=== PATIENT | male | born 1965 | race Caucasian/White ===

== ENCOUNTER 2019-08-12 00:11 | Observation (INO) | payer SELFPAY ==
[2019-08-12] MEDS ORDERED: Nicotine 14 MG PATCH ONE (00:42)
[2019-08-12 01:21] LABS: Troponin I Less than 0.010 ng/mL (< 0.028)
[2019-08-12 03:03] VITALS: BMI 22.8
[2019-08-12] MEDS ORDERED: Calcium Carbonate 500 MG ChewTAB PO PRN (03:40)
[2019-08-12] MEDS ORDERED: Senokot S 8.6-50 MG TAB PO PRN (03:40)
[2019-08-12] MEDS ORDERED: Acetaminophen 325 MG TAB PO PRN (03:40)
[2019-08-12] MEDS ORDERED: Ondansetron ODT 4 MG TAB PO PRN (03:40)
[2019-08-12] MEDS ORDERED: Ondansetron PF 4 MG/2 ML Vial IVP PRN (03:40)
--- NOTE | 2019-08-12 04:04 | HP ---
PRIMARY CARE PHYSICIAN: Elena Hardy MD CHIEF COMPLAINT: Chest discomfort. HISTORY OF PRESENT ILLNESS: The patient is a 53-year-old male with tobacco dependence, presented to the emergency room with above complaints. This morning around 8 a.m., the patient had sudden onset of precordial chest discomfort radiating to bilateral shoulder blades. The pain lasted for around 20 minutes. He had similar episode 3 to 4 weeks ago that subsided without any intervention. The pain was anuxcwhr-es-lzjeif in intensity, constant, pressure-like. He denies any nausea, vomiting, lightheadedness, dizziness, syncope, or palpitations. He is chest pain free at this time. The patient reported traveling to [place] 3 weeks ago. PAST MEDICAL HISTORY: Benign prostatic hypertrophy. PAST SURGICAL HISTORY: Reviewed with the patient and none. ALLERGIES: THE PATIENT IS ALLERGIC TO SULFA. CURRENT HOME MEDICATIONS: Reviewed with the patient and none. SOCIAL HISTORY: The patient has a history of tobacco abuse. He drinks alcohol socially. He denies any history of withdrawals. FAMILY HISTORY: Positive for diabetes. REVIEW OF SYSTEMS: All other review of systems were reviewed and were found negative. PHYSICAL EXAMINATION: VITAL SIGNS: Temperature 98.2, respiration of 16, pulse rate of 79 with a blood pressure of 127/75, O2 saturation 98% on room air. GENERAL: A 53-year-old male, in no apparent distress. Denies any chest discomfort at this time. HEENT: Head, atraumatic and normocephalic. Sclerae anicteric. Moist mucous membranes. No oral lesion. NECK: Supple. No JVD appreciated. No carotid bruit. LUNGS: Clear to auscultation bilaterally. No wheezing, rales, or rhonchi. HEART: S1 and S2 present. Regular rate and rhythm. No rubs or gallops. ABDOMEN: Soft, nontender. Bowel sounds present. EXTREMITIES: No edema or calf tenderness. NEUROLOGICAL: Grossly nonfocal. Moves all 4 extremities. PSYCHIATRY: Alert, awake, oriented x3. SKIN: Warm and dry. LYMPH NODES: No palpable lymph nodes in the neck. PERIPHERAL VASCULAR: Radial pulses palpable bilaterally. MUSCULOSKELETAL: No joint swelling or tenderness. LABORATORY AND DIAGNOSTIC FINDINGS: CBC showed WBC 9.6 with hemoglobin 14.5 and platelets of 168. Chemistry showed sodium 140, potassium 3.6, chloride 104, bicarb 22, BUN of 10, creatinine 1. Magnesium 2.1. Troponin was negative. Chest x-ray by my review was negative for infiltrate or edema. EKG by my review showed nonspecific T-wave changes in the inferior leads. IMPRESSION: 1. Chest discomfort, rule out acute coronary syndrome. 2. Abnormal EKG. 3. Recent immobilization. 4. Ongoing tobacco abuse. 5. Chronic kidney disease stage 2. 6. Benign prostatic hypertrophy. 7. Sulfa allergy. PLAN: The patient will be monitored on the telemetry unit. D-dimer will be obtained. If the D-dimer is negative, we will proceed with a stress test. If the D-dimer is abnormal, we will get a CT angiogram of the chest. The patient will be kept n.p.o. past midnight. Tobacco cessation was emphasized. Vital signs per protocol. The patient understands the above plan of care. Job ID: [id number] MTDD
[2019-08-12] MEDS ORDERED: Nitroglycerin 0.4 MG TAB (25 Tab Bottle) PO PRN (04:08)
[2019-08-12] MEDS ORDERED: Aspirin 325 MG TAB PO SCH (04:15)
[2019-08-12 04:41] LABS: Troponin I 0.018 ng/mL (< 0.028)
[2019-08-12] MEDS ORDERED: Famotidine 20 MG TAB PO SCH (09:00)
[2019-08-12] MEDS ORDERED: Aspirin 325 mg Enteric Coated Tablet PO SCH (09:00)
[2019-08-12 11:37] VITALS: BP 145/78; TEMP 98.1
--- NOTE | 2019-08-12 11:46 | NM ---
NUCLEAR MEDICINE CARDIAC MYOCARDIAL PERFUSION SPECT EJECTION FRACTION STUDY WALL MOTION CINE: DATE: 08/12/2019 HISTORY: 53-year-old male smoker presents with chest pain TECHNIQUE: Number of days: 1 Rest study: Technetium 99m-sestamibi (Cardiolite) dose: 10.7 mCi Exercise stress: Treadmill Stress study: Technetium 99m-sestamibi (Cardiolite) dose: 29.2 mCi FINDINGS: CARDIAC (MYOCARDIAL PERFUSION) SPECT Distribution of sestamibi is homogeneous throughout the left ventricle, with no fixed or reversible m yocardial perfusion defects. EJECTION FRACTION STUDY Left ventricular EF = 79 % WALL MOTION CINE The left ventricular wall motion is normal. There is normal systolic wall thickening. IMPRESSION: Normal.
--- NOTE | 2019-08-12 12:55 | DIS ---
DATE OF ADMISSION: 08/12/2019 DATE OF DISCHARGE: 08/12/2019 DISCHARGE DIAGNOSES: 1. Chest pain, noncardiac. 2. Tobacco abuse. CONSULTATIONS: None. PERTINENT LABORATORY AND X-RAY FINDINGS: Troponin I negative x3. Magnesium 2.1. D-dimer less than 0.27. Portable chest x-ray dated 08/11/2019, showed no acute cardiopulmonary process. Cardiolite stress test dated 08/12/2019, showed no evidence of reversible or fixed ischemia with calculated ejection fraction of 79%. HOSPITAL COURSE: The patient was observed on the telemetry unit after initially presenting with central chest pressure and pain. The patient underwent serial cardiac biomarkers, which were negative x3 preceding to Cardiolite stress testing showing no evidence for reversible or fixed ischemia with overall calculated ejection fraction of 79%. The patient's presentation likely due to esophageal spasm and reflux with recommendations for [id number] H2 frank. The patient remained clinically stable throughout the hospital course. I have examined the patient at the time of discharge and discussed followup instructions. The patient verbalized understanding and agreement, and ready for discharge on 08/12/2019. DISCHARGE MEDICATIONS: Reviewed and negative. FOLLOWUP: The patient may follow up with [facility] in [place], [place] as needed. CONDITION ON DISCHARGE: Stable. ACTIVITY: [place]. DIET: Heart healthy. SPECIAL INSTRUCTIONS: Smoking cessation resources given. CODE STATUS: Full. DISPOSITION: To home on 08/12/2019. Job ID: [id number]
--- NOTE | 2019-08-12 14:58 | EKG ---
Test Reason : Blood Pressure : / mmHG Vent. Rate : 082 BPM Atrial Rate : 082 BPM P-R Int : 162 ms QRS Dur : 100 ms QT Int : 362 ms P-R-T Axes : 065 068 027 degrees QTc Int : 422 ms Poor data quality, interpretation may be adversely affected Sinus rhythm with Premature ventricular complexes or Fusion complexes Possible Left atrial enlargement T wave abnormality, consider inferior ischemia No STEMI Abnormal ECG Confirmed by MIGUEL A ALONZO M.D. ([id number]), scientific publications editor MARIO WEST ([id number]) on 08/12/2019 2:57:42 PM Referred By: Confirmed By:MIGUEL A ALONZO M.D.
[2019-08-12] MEDS ORDERED: Nicotine 14 MG PATCH TD PRN (21:00)
== END 2019-08-12 12:50 | disposition home or self-care (01) ==
LOC: ERS 00:11 → 2NO 01:40
PROVIDERS: ADMIT Internal Medicine; ATTEND Family Medicine
DX: R07.89 Other chest pain (principal); N18.2 Chronic kidney disease, stage 2 (mild); N40.0 Benign prostatic hyperplasia without lower urinary tract symptoms; F17.220 Nicotine dependence, chewing tobacco, uncomplicated; Z88.2 Allergy status to sulfonamides
CPT/HCPCS: 36415; 78452; 83735; 84484; 85379; 93005; 93017; 94760; A9500; G0378

== ENCOUNTER 2019-09-16 07:33 | Outpatient (CLI) | payer OTHER, SELFPAY ==
--- NOTE | 2019-09-16 10:19 | CT ---
CTA THORAX UTILIZING IV CONTRAST PE PROTOCOL 3D REFORMATTED IMAGING: Date: 09/16/2019 COMPARISON: Prior chest radiograph dated 08/11/2019. FINDINGS: No central or segmental pulmonary embolus is evident. The heart and great vessels appear within arnold l limits. No pathologically enlarged lymph node is seen within the mediastinum, hilar, or axillary re gions. No suspicious pulmonary nodule is evident. Visualized upper abdomen demonstrates some mild renal cortical thinning involving the superior pole o f the right kidney which may reflect sequelae of prior infection or trauma. No acute abnormality is e vident within the visualized aspects of the upper abdomen. There is mild multilevel spondylosis of the thoracic spine. IMPRESSION: 1. No central or segmental pulmonary embolus. 2. No additional acute cardiopulmonary abnormality. 3. Mild focal region of cortical thinning and scarring involving superior pole of right kidney which may reflect sequelae of prior infection or trauma. POS: [facility]
[2019-09-16] MEDS ORDERED: Iopamidol-370 76% 500 ML 1 ML ONE (11:37)
== END 2019-09-16 07:34 | disposition home or self-care (01) ==
LOC: BICCT 07:33
PROVIDERS: ATTEND Internal Medicine Cardiovascular Disease
DX: R07.9 Chest pain, unspecified (principal); N28.89 Other specified disorders of kidney and ureter
CPT/HCPCS: 71275; Q9967